=== PATIENT | male | born 1980 | race Caucasian/White ===

== ENCOUNTER 2022-09-21 20:00 | Emergency (ER) | payer SELFPAY ==
[2022-09-21] MEDS ORDERED: Lidocaine 1% 5 ML VIAL INJECT ONE (20:28)
[2022-09-21] MEDS ORDERED: Bacitracin Oint 1 GM U/D Packet TOP ONE (20:28)
[2022-09-21] MEDS ORDERED: Diphtheria/Tetanus Toxoids,Adult (Td) 0.5 ML SDV IM ONE (21:43)
== END 2022-09-21 22:03 | disposition home or self-care (01) ==
LOC: JP.ED 20:00
DX: S61.217A Laceration without foreign body of left little finger without damage to nail, initial encounter (principal); Z88.8 Allergy status to other drugs, medicaments and biological substances; W23.0XXA Caught, crushed, jammed, or pinched between moving objects, initial encounter
CPT/HCPCS: 12001; 73130-26-LT; 73130-LT; 90471; 90714; 99282; 99283-25